=== PATIENT | male | born 1990 | race Two or more races ===

== ENCOUNTER 2025-07-28 23:46 | Emergency (ER) | payer OTHER ==
[~2025-07-28] VITALS: Ht 185.4 cm; Wt 96.2 kg
[2025-07-29] MEDS ORDERED: DEXAMETHASONE SODIUM PHOSPHATE 4 MG/ML VIAL ONE (00:52)
[2025-07-29] MEDS ORDERED: IPRATROPIUM BROMIDE 0.5 MG/2.5 ML AMPUL.NEB IH ONE ×2 (01:00→01:03)
[2025-07-29] MEDS ORDERED: DEXAMETHASONE SODIUM PHOSPHATE 4 MG/ML VIAL IM ONE (01:00)
[2025-07-29] MEDS ORDERED: ALBUTEROL SULFATE 3 ML/2.5 MG AMPUL.NEB IH ONE ×2 (01:00→01:04)
[2025-07-29] MEDS ORDERED: VENTOLIN HFA18 GM IH (01:10)
== END 2025-07-29 | disposition home or self-care (01) ==
LOC: ER 23:47
DX: J45.901 Unspecified asthma with (acute) exacerbation (principal); F17.200 Nicotine dependence, unspecified, uncomplicated
CPT/HCPCS: 94640; 96372; 99283; J1100